=== PATIENT | male | born 1960 | race Caucasian/White ===

== ENCOUNTER 2018-08-26 09:37 | Inpatient (IN) | payer MEDICAID ==
[2018-08-26] MEDS ORDERED: ASPIRIN 81 MG TABLET, CHEWABLE PO ONE (09:40)
--- NOTE | 2018-08-26 10:00 | ER Document Report ---
ED General - General Stated Complaint: RAPID HEARTRATE Time Seen by Provider: 08/26/18 09:49 Primary Care Provider: ANNA IRWIN MD [NO LOCAL MD] - Follow up as needed Notes: Patient is a 57-year-old male with past medical history including some intermittent atrial fibrillation, COPD, coronary artery disease, obstructive sleep apnea, diabetes, high blood pressure, who states while he was sitting in a recliner this morning he felt his "heart get fast". He denies any and all chest pain or pressure. He does state some mild intermittent shortness of breath over the last 2 weeks. He denies any increased swelling of the legs. He denies any recent trips or travel. Patient is on Coumadin secondary to atrial fibrillation as well as previous blood clots in his legs with his most recent INR check around 2 weeks ago that was 2.5 as reported by the patient. Patient states his last episode of atrial fibrillation was around 5 years ago. He denies any runny nose, congestion, cough, vomiting, or diarrhea. TRAVEL OUTSIDE OF THE [place] IN LAST 30 DAYS: No - HPI Onset: Other - See above Onset/Duration: Gradual Quality of pain: No pain Severity: Mild Pain Level: Denies Associated symptoms: Other - See above Exacerbated by: Denies Relieved by: Denies Similar symptoms previously: No Recently seen / treated by doctor: No - Related Data Allergies/Adverse Reactions: allantoin [From Orajel] Allergy (Severe, Verified 08/08/15 12:46) Anaphylaxis benzalkonium chloride [From Orajel] Allergy (Severe, Verified 08/08/15 12:46) Anaphylaxis benzocaine [From Orajel] Allergy (Severe, Verified 08/08/15 12:46) Anaphylaxis carbamide peroxide [From Orajel] Allergy (Severe, Verified 08/08/15 12:46) Anaphylaxis zinc chloride [From Orajel] Allergy (Severe, Verified 08/08/15 12:46) Anaphylaxis budesonide [From Symbicort] Allergy (Verified 08/08/15 12:46) heart racing fluticasone propionate [From Advair Diskus] Allergy (Verified 08/08/15 12:46) Anaphylaxis formoterol fumarate [From Symbicort] Allergy (Verified 08/08/15 12:46) heart racing glyburide [Glyburide] Allergy (Verified 08/08/15 12:46) indomethacin [From Indocin] Allergy (Verified 08/08/15 12:46) indomethacin sodium [From Indocin] Allergy (Verified 08/08/15 12:46) lisinopril [Lisinopril] Allergy (Verified 08/08/15 12:46) salmeterol xinafoate [From Advair Diskus] Allergy (Verified 08/08/15 12:46) Anaphylaxis saxagliptin HCl [From Onglyza] Allergy (Verified 08/08/15 12:46) tiotropium bromide [From Spiriva with HandiHaler] Allergy (Verified 08/08/15 12:46) heart racing Past Medical History - General Cannot obtain history due to: Other - Social History Smoking Status: Unknown if Ever Smoked Cigarette use (# per day): No Chew tobacco use (# tins/day): No Smoking Education Provided: No Family History: Reviewed & Not Pertinent, Other - Father: lung CA - Past Medical History Cardiac Medical History: Reports: Hx Atrial Fibrillation, Hx Coronary Artery Disease, Hx DVT, Hx Hypercholesterolemia, Hx Hypertension, Hx Pulmonary Embolism Pulmonary Medical History: Reports: Hx Asthma, Hx Bronchitis, Hx COPD, Hx Pneumonia Endocrine Medical History: Reports: Hx Diabetes Mellitus Type 2 Renal/ Medical History: Reports: Hx Benign Prostatic Hyperplasia Musculoskeletal Medical History: Reports Hx Arthritis Past Surgical History: Reports: Hx Orthopedic Surgery - right leg x5 - Immunizations Hx Diphtheria, Pertussis, Tetanus Vaccination: - unknown Review of Systems - Review of Systems Constitutional: denies: Fever EENT: denies: Eye discharge, Nose discharge Cardiovascular: Palpitations, Heart racing. denies: Chest pain, Dizziness Respiratory: denies: Short of breath Gastrointestinal: denies: Vomiting Genitourinary: denies: Dysuria Musculoskeletal: denies: Leg swelling Skin: Other - no hives. denies: Rash Neurological/Psychological: Other - no slurred speech -: Yes All other systems reviewed and negative Physical Exam - Vital signs Vitals: Pulse Ox 95 08/26/18 09:40 Notes: Reviewed vital signs and nursing note as charted by RN. CONSTITUTIONAL: Alert and oriented and responds appropriately to questions. Well-appearing; well-nourished HEAD: Normocephalic; atraumatic EYES: PERRL; Conjunctivae clear, sclerae non-icteric ENT: Normal nose; no rhinorrhea; moist mucous membranes; pharynx without lesions noted NECK: Supple without meningismus; non-tender; no cervical lymphadenopathy, no masses CARD: Tachycardic and irregular; no murmurs; symmetric distal pulses RESP: Normal chest excursion without splinting or tachypnea; breath sounds clear and equal bilaterally; scant bilateral wheezing without rhonchi appreciated ABD/GI: Normal bowel sounds; non-distended; soft, non-tender; no palpable organomegaly or masses BACK: The back appears normal and is non-tender to palpation EXT: Normal ROM in all joints; non-tender to palpation; nontender 1+ pitting edema to bilateral lower extremities SKIN: No acute lesions noted NEURO: CN 2-12 intact; 5/5 bilateral upper and lower extremity strength with se nsation intact to light touch PSYCH: The patient's mood and manner are appropriate. Grooming and personal hygiene are appropriate. Course - Re-evaluation Re-evalutation: 08/26/18 09:53 Given the above history and physical examination we will place the patient on the monitor, obtain an EKG, PT/INR, basic labs and an x-ray of the chest. Patient has denied any and all chest pain or pressure. Patient is already taking Coumadin with the last INR check as recorded above. I do believe pulmonary embolism to be unlikely at this moment. Patient is currently on a Cardizem drip at 5 and we will increase this to 10. EMS has provided a Cardizem bolus of 25 before starting the patient on a drip. 08/26/18 10:00 EKG shows a heart rate 119, atrial fibrillation with rapid ventricular response, left axis deviation, no ST elevation or depression 08/26/18 10:54 X-ray of the chest as recorded. Laboratory work and troponin with the INR of 2 as recorded, I do not believe any further imaging or laboratory work is necessary at this moment. Patient's heart rate has improved. Cardizem drip of 10. Blood pressure was stable. Patient will be admitted to the hospitalist service with cardiology consultation. - Vital Signs Vital signs: Temp Pulse Resp BP Pulse Ox 97.8 F 118 H 21 H 190/95 H 95 08/26/18 09:42 08/26/18 09:42 08/26/18 09:42 08/26/18 09:42 08/26/18 09:40 - Laboratory Result Diagrams: 08/26/18 09:00 08/26/18 09:00 Laboratory results interpreted by me: 08/26/18 08/26/18 08/26/18 09:00 09:00 09:00 RDW 14.4 H PT 23.9 H Glucose 201 H Creatine Kinase 46 L Critical Care Note - Critical Care Note Total time excluding time spent on procedures (mins): 35 Discharge - Discharge Clinical Impression: Atrial fibrillation with rapid ventricular response Condition: Fair Disposition: ADMITTED INPATIENT Admitting Provider: Hospitalist Unit Admitted: IMCU Referrals: ANNA IRWIN MD [NO LOCAL MD] - Follow up as needed
[2018-08-26 10:13] LABS: ABSOLUTE BASOPHILS # (AUTO) 0.1 10^3/uL (0.0-0.2); ABSOLUTE EOSINOPHILS # (AUTO) 0.3 10^3/uL (0.0-0.6); ABSOLUTE LYMPHOCYTES (AUTO) 2.1 10^3/uL (0.5-4.7); ABSOLUTE MONOCYTES (AUTO) 0.9 10^3/uL (0.1-1.4); BASOPHILS % (AUTO) 0.8 % (0-2); EOSINOPHILS % (AUTO) 3.4 % (0-6); HEMATOCRIT 44.7 % (37.9-51.0); HEMOGLOBIN 15.3 g/dL (13.5-17.0); LYMPHOCYTES % (AUTO) 24.8 % (13-45); MEAN CORPUSCULAR HEMOGLOBIN 28.9 pg (27.0-33.4); MEAN CORPUSCULAR HGB CONC 34.3 g/dL (32.0-36.0); MEAN CORPUSCULAR VOLUME 84 fl (80-97); MONOCYTES % (AUTO) 11.2 % (3-13); PLATELET COUNT 214 10^3/uL (150-450); RED CELL DISTRIBUTION WIDTH 14.4 % (11.5-14.0); SEGMENTED NEUTROPHILS % (AUTO) 59.8 % (42-78); TOTAL CELLS COUNTED % (AUTO) 100 %; WHITE BLOOD COUNT 8.4 10^3/uL (4.0-10.5)
[2018-08-26 10:17] LABS: INTERNATIONAL RATION (INR) 2.02; PROTHROMBIN TIME 23.9 SEC (11.4-15.4)
[2018-08-26 10:26] LABS: ALANINE AMINOTRANSFERASE 35 U/L (21-72); ALBUMIN 4.7 g/dL (3.5-5.0); ALKALINE PHOSPHATASE 90 U/L (38-126); ANION GAP 10 (5-19); ASPARTATE AMINO TRANSFERASE 27 U/L (17-59); BILIRUBIN,DIRECT 0.3 mg/dL (0.0-0.4); BLOOD UREA NITROGEN 17 mg/dL (7-20); CALCIUM 9.5 mg/dL (8.4-10.2); CARBON DIOXIDE 26 mmol/L (22-30); CHLORIDE 105 mmol/L (98-107); CREATINE KINASE 46 U/L (55-170); GLUCOSE 201 mg/dL (75-110); POTASSIUM 4.5 mmol/L (3.6-5.0); SODIUM 140.7 mmol/L (137-145); TOTAL PROTEIN 7.3 g/dL (6.3-8.2)
[2018-08-26 10:38] LABS: CREATINE KINASE MB 0.56 ng/mL (<4.55)
[2018-08-26 10:42] LABS: TROPONIN I < 0.012 ng/mL
--- NOTE | 2018-08-26 10:50 | RADIOLOGY REPORT (SQ) ---
EXAM DESCRIPTION: CHEST SINGLE VIEW COMPLETED DATE/TIME: 08/26/2018 10:24 am REASON FOR STUDY: bed 8 palpitations COMPARISON: CT chest 08/08/2015 Chest films 08/08/2015, 06/27/2015, 09/04/2011 EXAM PARAMETERS: NUMBER OF VIEWS: One view. TECHNIQUE: Single frontal radiographic view of the chest acquired. RADIATION DOSE: NA LIMITATIONS: None. FINDINGS: LUNGS AND PLEURA: No opacities, masses or pneumothorax. No pleural effusion. MEDIASTINUM AND HILAR STRUCTURES: No masses. Contour normal. HEART AND VASCULAR STRUCTURES: Heart normal in size. Normal vasculature. BONES: No acute findings. HARDWARE: None in the chest. OTHER: No other significant finding. IMPRESSION: NO ACUTE RADIOGRAPHIC FINDING IN THE CHEST. TECHNICAL DOCUMENTATION: JOB ID: [id number] [employer]- All Rights Reserved Reading location - IP/workstation name: [email or web address]
[2018-08-26] MEDS ORDERED: ONDANSETRON HCL INJ/PF 4 MG/2 ML SDV IV PRN (11:27)
[2018-08-26] MEDS ORDERED: ZOLPIDEM TARTRATE 5 MG TABLET PO PRN (11:27)
[2018-08-26] MEDS ORDERED: HYDROCODONE/ACETAMINOPHEN 10-325 MG TABLET PO PRN (11:34)
[2018-08-26] MEDS ORDERED: INSULIN REG, HUMAN 100 UNIT/ML 3 ML VIAL (PYX) SUBCUT PRN (11:35)
[2018-08-26] MEDS ORDERED: DEXTROSE 40% GEL 15 GM TUBE PO PRN ×2 (11:35)
[2018-08-26] MEDS ORDERED: GLUCAGON,HUMAN RECOMB 1 MG INJ IM PRN (11:35)
[2018-08-26] MEDS ORDERED: DEXTROSE 50%-WATER 25 GM/50 ML DISP.SYRIN IV PRN ×2 (11:35)
[2018-08-26] MEDS ORDERED: DILTIAZEM HCL/D5W 125 MG/125 ML RTUINJ IV PRN ×2 (11:36→12:58)
[2018-08-26] MEDS ORDERED: (PENDING PHARMACY ID) (Warfarin Sodium 10 MG) PO SCH (11:45)
--- NOTE | 2018-08-26 12:03 | PDOC H&P ---
History of Present Illness Admission Date/PCP: 08/26/18 11:16 Patient complains of: Palpitations and shortness of breath History of Present Illness: JEET WORTHINGTON is a 57 year old male with history of morbid obesity, pulmonary embolism on Coumadin, atrial fibrillation, diabetes, hypertension, hyperlipidemia, obstructive sleep apnea, COPD secondary to smoking, on CPAP at night for obstructive sleep apnea, history of coronary artery disease came to the emergency room with complaints of sudden onset of palpitations and shortness of breath around 8:30 AM this morning. According to the patient he just finished his breakfast and sat in the recliner about to take his medications all of a sudden felt shortness of breath in association with palpitations like her heart is racing away., The symptoms are associated with lightheadedness and dizziness. He decided to came to the emergency room for further evaluation. Emergency room workup was done patient was found to be in A. fib with RVR started on Cardizem drip and medical consult was called for admission and cardiology consult. Went to talk to the patient in the emergency room in room 8 patient was morbidly obese male comfortable in the bed not anxious on Cardizem drip heart rate is in the 90s but still in A. fib, he is able to give a good information about her his past medical history and why he came to the emergency room today. Planning to put him in [facility] as an inpatient. Discussed the case with Dr. Falk is going to see the patient today. Past Medical History Cardiac Medical History: Reports: Atrial Fibrillation, Coronary Artery Disease, DVT, Hyperlipidema, Hypertension, Pulmonary Embolism Pulmonary Medical History: Reports: Asthma, Bronchitis, Chronic Obstructive Pulmonary Disease (COPD), Pneumonia Endocrine Medical History: Reports: Diabetes Mellitus Type 2 Musculoskeltal Medical History: Reports: Arthritis Past Surgical History Past Surgical History: Reports: Orthopedic Surgery - right leg x5, Other - Patient has surgery on both shoulders also multiple surgeries on the rtleg Social History Smoking Status: Former Smoker Frequency of Alcohol Use: None Hx Recreational Drug Use: No Drugs: None Hx Prescription Drug Abuse: No - Advance Directive Resuscitation Status: Full Code Family History Family History: Reviewed & Not Pertinent, Other - Father: lung CA Parental Family History Reviewed: Yes - Father has lung cancer and bone cancer Children Family History Reviewed: Yes Sibling(s) Family History Reviewed.: Yes Medication/Allergy Home Medications: Warfarin Sodium 10 mg PO ASDIR 02/04/12 Aspirin [Betty Chewable Aspirin] 81 mg PO DAILY 02/26/15 Atorvastatin Calcium [Lipitor 20 mg Tablet] 20 mg PO QHS 02/26/15 Cetirizine HCl [Zyrtec] 10 mg PO DAILY 02/26/15 Dextrose [Glucose] 1 each PO PRN PRN 02/26/15 Hydrocodone/Acetaminophen [[place] 10-325 Tablet] 1 each PO TIDP PRN 02/26/15 Ipratropium/Albuterol Sulfate [Combivent Respimat 20-100 Mcg] 4 gm IH Q6H 02/26/15 Metformin HCl [Glumetza ER 500 mg Tablet] 500 mg PO DAILY 02/26/15 Montelukast Sodium [Singulair 10 mg Tablet] 10 mg PO QHS 02/26/15 Neomy Sulf/Polymyx B Sulf/Hc [Cortisporin Otic Susp 10 ml] 1 drop OT QID 02/26/15 Tamsulosin HCl [Flomax 0.4 mg Cap.sr] 0.4 mg PO DAILY 02/26/15 Warfarin Sodium [Coumadin 5 mg Tablet] 5 mg PO ASDIR 02/26/15 Amlodipine Besylate [Norvasc 5 mg Tablet] 10 mg PO DAILY #30 tablet 06/28/15 Ondansetron [Zofran Odt 4 mg Tablet] 1 tab PO Q6H PRN #10 tab.rapdis 08/08/15 Allergies/Adverse Reactions: allantoin [From Orajel] Allergy (Severe, Verified 08/08/15 12:46) Anaphylaxis benzalkonium chloride [From Orajel] Allergy (Severe, Verified 08/08/15 12:46) Anaphylaxis benzocaine [From Orajel] Allergy (Severe, Verified 08/08/15 12:46) Anaphylaxis carbamide peroxide [From Orajel] Allergy (Severe, Verified 08/08/15 12:46) Anaphylaxis zinc chloride [From Orajel] Allergy (Severe, Verified 08/08/15 12:46) Anaphylaxis budesonide [From Symbicort] Allergy (Verified 08/08/15 12:46) heart racing fluticasone propionate [From Advair Diskus] Allergy (Verified 08/08/15 12:46) Anaphylaxis formoterol fumarate [From Symbicort] Allergy (Verified 08/08/15 12:46) heart racing glyburide [Glyburide] Allergy (Verified 08/08/15 12:46) indomethacin [From Indocin] Allergy (Verified 08/08/15 12:46) indomethacin sodium [From Indocin] Allergy (Verified 08/08/15 12:46) lisinopril [Lisinopril] Allergy (Verified 08/08/15 12:46) salmeterol xinafoate [From Advair Diskus] Allergy (Verified 08/08/15 12:46) Anaphylaxis saxagliptin HCl [From Onglyza] Allergy (Verified 08/08/15 12:46) tiotropium bromide [From Spiriva with HandiHaler] Allergy (Verified 08/08/15 12:46) heart racing Review of Systems Constitutional: PRESENT: weakness. ABSENT: fever(s), headache(s) Eyes: ABSENT: visual disturbances Ears: ABSENT: hearing changes Nose, Mouth, and Throat: ABSENT: sore throat Cardiovascular: PRESENT: palpitations. ABSENT: chest pain, dyspnea on exertion Respiratory: ABSENT: cough, dyspnea, hemoptysis Gastrointestinal: ABSENT: diarrhea, nausea, vomiting Neurological: PRESENT: dizziness, other - Complaining of tingling and numbness in the arms. Psychiatric: PRESENT: anxiety Physical Exam Vital Signs: Temp Pulse Resp BP Pulse Ox 97.8 F 118 H 21 H 190/95 H 95 08/26/18 09:42 08/26/18 09:42 08/26/18 09:42 08/26/18 09:42 08/26/18 09:40 Intake & Output 08/25/18 08/26/18 08/27/18 06:59 06:59 06:59 Weight 155.5 kg General appearance: PRESENT: other - Morbidly obese male with a BMI of more than 45. Head exam: PRESENT: atraumatic Eye exam: PRESENT: PERRLA Mouth exam: PRESENT: moist Neck exam: ABSENT: carotid bruit, JVD, lymphadenopathy, thyromegaly Respiratory exam: PRESENT: decreased breath sounds Cardiovascular exam: PRESENT: irregular rhythm, tachycardia GI/Abdominal exam: PRESENT: other - Morbidly obese abdomen bowel sounds are present. Extremities exam: PRESENT: +1 edema Neurological exam: PRESENT: alert, awake, oriented to person, oriented to place, oriented to time, oriented to situation, CN II-XII grossly intact. ABSENT: motor sensory deficit Psychiatric exam: PRESENT: appropriate affect, normal mood. ABSENT: homicidal ideation, suicidal ideation Results Laboratory Results: 08/26/18 09:00 08/26/18 09:00 08/26/18 08/26/18 09:00 09:00 WBC 8.4 RBC 5.30 Hgb 15.3 Hct 44.7 MCV 84 MCH 28.9 MCHC 34.3 RDW 14.4 H Plt Count 214 Seg Neutrophils % 59.8 Lymphocytes % 24.8 Monocytes % 11.2 Eosinophils % 3.4 Basophils % 0.8 Absolute Neutrophils 5.0 Absolute Lymphocytes 2.1 Absolute Monocytes 0.9 Absolute Eosinophils 0.3 Absolute Basophils 0.1 Sodium 140.7 Potassium 4.5 Chloride 105 Carbon Dioxide 26 Anion Gap 10 BUN 17 Creatinine 0.82 Est GFR ( Amer) > 60 Est GFR (Non-Af Amer) > 60 Glucose 201 H Calcium 9.5 Total Bilirubin 1.0 AST 27 ALT 35 Alkaline Phosphatase 90 Total Protein 7.3 Albumin 4.7 08/26/18 08/26/18 09:00 09:00 Creatine Kinase 46 L CK-MB (CK-2) 0.56 Troponin I < 0.012 Impressions: Chest X-Ray 08/26/18 09:40 IMPRESSION: NO ACUTE RADIOGRAPHIC FINDING IN THE CHEST. Assessment & Plan - Diagnosis (1) Atrial fibrillation with rapid ventricular response Is this a current diagnosis for this admission?: Yes Plan: 08/26/2018 patient came in with atrial fibrillation rapid ventricular rate. In association with the dizziness lightheadedness palpitations and shortness of breath. Patient is going to be placed in IMCU. Cardiology consult was requested. To continue Cardizem drip. Cardiac enzymes x3 requested. Echocardiogram was requested. Follow-up EKGs will be done. She is on Coumadin at home INR is 2.0 plan is to continue Coumadin during the hospital stay. To check TSH tomorrow. Fall precautions are requested. It is going to be admitted as inpatient. (2) Pulmonary embolism Is this a current diagnosis for this admission?: Yes Plan: 08/26/2018-patient has history of pulmonary embolism on Coumadin. His INR is 2.0. Planning to restart the Coumadin 10 mg p.o. nightly. To check the INR and daily basis. Plan to check the CTA of the chest today to rule out any PE. (3) HTN (hypertension) Qualifiers: Hypertension type: essential hypertension Qualified Code(s): I10 - Essential (primary) hypertension Is this a current diagnosis for this admission?: Yes Plan: 08/26/2018 patient has history of hypertension blood pressure is 190/95 in the emergency room. He is on amlodipine 10 mg p.o. daily. Plan to restart amlodipine during the hospital stay. Plan is to closely monitor the blood pressures on regular basis. (4) Diabetes 1.5, managed as type 2 Is this a current diagnosis for this admission?: Yes Plan: 08/26/2018-patient has history of diabetes mellitus type 2-planning to check the hemoglobin A1c tomorrow. Started on insulin sliding scale. Patient was on metformin at home which is going to be on hold. Dietary consult was requested. Diet exercise weight loss and complete the medications were requested. (5) Morbid obesity with BMI of 45.0-49.9, adult Is this a current diagnosis for this admission?: Yes Plan: 08/26/2018-patient has morbid obesity BMI is more than 45. Diet exercise weight loss lifestyle modifications discussed with the patient. Dietary consult was also requested. (6) COPD (chronic obstructive pulmonary disease) Is this a current diagnosis for this admission?: Yes Plan: 08/26/2018 patient is given the history of COPD is set is to smoke heavily before he quit smoking a few years ago. He is not on home oxygen. On examination chest bilateral entry was decreased but there is no wheezing no crackles. (7) Obstructive sleep apnea Is this a current diagnosis for this admission?: Yes Plan: 08/25/2018 patient is given the history of obstructive sleep apnea uses CPAP at night at home. Plan is to restart on CPAP during the hospital stay. - Time Time Spent: 50 to 70 Minutes Critical Time spent with patient: 15-24 minutes Medications reviewed and adjusted accordingly: Yes Anticipated discharge: Home
--- NOTE | 2018-08-26 13:10 | PDOC CONSULTATION ---
Consultation Consult Date: 08/26/18 Consult reason:: Atrial fibrillation with RVR History of Present Illness Admission Date/PCP: 08/26/18 11:16 Patient complains of: Palpitations and shortness of breath History of Present Illness: JEET WORTHINGTON is a 57 year old male with past medical history of morbid obesity, obstructive sleep apnea, COPD, history of pulmonary embolism, history of paroxysmal atrial fibrillation on Coumadin therapy, hypertension comes with complaints of palpitations with worsening shortness of breath and easy fatigability for the last few days. He denies any duy chest pain. Patient claims that he had pulmonary embolism a few years ago and at the same time he was diagnosed with atrial fibrillation and since then he has been on anticoagulation. He has not been on any rate limiting medications and claims he has not had an issue with fast heart rates in the past. He also admits to being on Xarelto at some point but had a reaction to the medicine and so was started on Coumadin. He has also noted puffiness of his legs lately. He denies any recent falls or any bleeding per rectum or black stools while on Coumadin therapy. He is single and lives by himself. He is used to smoke a pack of cigarettes for almost 30 years but quit 7 years ago. He denies alcohol abuse or any recreational drug use. Past Medical History Cardiac Medical History: Reports: Atrial Fibrillation, DVT, Hyperlipidema, Hypertension, Pulmonary Embolism Pulmonary Medical History: Reports: Asthma, Bronchitis, Chronic Obstructive Pulmonary Disease (COPD), Pneumonia Endocrine Medical History: Reports: Diabetes Mellitus Type 2, Obesity Musculoskeltal Medical History: Reports: Arthritis Past Surgical History Past Surgical History: Reports: Orthopedic Surgery - right leg x5, Other - Patient has surgery on both shoulders also multiple surgeries on the rtleg Social History Smoking Status: Former Smoker Frequency of Alcohol Use: None Hx Recreational Drug Use: No Drugs: None Hx Prescription Drug Abuse: No - Advance Directive Resuscitation Status: Full Code Family History Family History: Reviewed & Not Pertinent, Other - Father: lung CA Parental Family History Reviewed: Yes Children Family History Reviewed: Unknown Sibling(s) Family History Reviewed.: Unknown Medication/Allergy Home Medications: Warfarin Sodium 10 mg PO ASDIR 09/04/11 Aspirin [Betty Chewable Aspirin] 81 mg PO DAILY 02/26/15 Atorvastatin Calcium [Lipitor 20 mg Tablet] 20 mg PO QHS 02/26/15 Cetirizine HCl [Zyrtec] 10 mg PO DAILY 02/26/15 Dextrose [Glucose] 1 each PO PRN PRN 02/26/15 Hydrocodone/Acetaminophen [[place] 10-325 Tablet] 1 each PO TIDP PRN 02/26/15 Ipratropium/Albuterol Sulfate [Combivent Respimat 20-100 Mcg] 4 gm IH Q6H 02/26/15 Metformin HCl [Glumetza ER 500 mg Tablet] 500 mg PO DAILY 02/26/15 Montelukast Sodium [Singulair 10 mg Tablet] 10 mg PO QHS 02/26/15 Neomy Sulf/Polymyx B Sulf/Hc [Cortisporin Otic Susp 10 ml] 1 drop OT QID 02/26/15 Tamsulosin HCl [Flomax 0.4 mg Cap.sr] 0.4 mg PO DAILY 02/26/15 Warfarin Sodium [Coumadin 5 mg Tablet] 5 mg PO ASDIR 02/26/15 Amlodipine Besylate [Norvasc 5 mg Tablet] 10 mg PO DAILY #30 tablet 06/28/15 Ondansetron [Zofran Odt 4 mg Tablet] 1 tab PO Q6H PRN #10 tab.rapdis 08/08/15 Allergies/Adverse Reactions: allantoin [From Orajel] Allergy (Severe, Verified 08/08/15 12:46) Anaphylaxis benzalkonium chloride [From Orajel] Allergy (Severe, Verified 08/08/15 12:46) Anaphylaxis benzocaine [From Orajel] Allergy (Severe, Verified 08/08/15 12:46) Anaphylaxis carbamide peroxide [From Orajel] Allergy (Severe, Verified 08/08/15 12:46) Anaphylaxis zinc chloride [From Orajel] Allergy (Severe, Verified 08/08/15 12:46) Anaphylaxis budesonide [From Symbicort] Allergy (Verified 08/08/15 12:46) heart racing fluticasone propionate [From Advair Diskus] Allergy (Verified 08/08/15 12:46) Anaphylaxis formoterol fumarate [From Symbicort] Allergy (Verified 08/08/15 12:46) heart racing glyburide [Glyburide] Allergy (Verified 08/08/15 12:46) indomethacin [From Indocin] Allergy (Verified 08/08/15 12:46) indomethacin sodium [From Indocin] Allergy (Verified 08/08/15 12:46) lisinopril [Lisinopril] Allergy (Verified 08/08/15 12:46) salmeterol xinafoate [From Advair Diskus] Allergy (Verified 08/08/15 12:46) Anaphylaxis saxagliptin HCl [From Onglyza] Allergy (Verified 08/08/15 12:46) tiotropium bromide [From Spiriva with HandiHaler] Allergy (Verified 08/08/15 12:46) heart racing Review of Systems Constitutional: PRESENT: fatigue Cardiovascular: PRESENT: dyspnea on exertion, edema, orthropnea, palpitations Physical Exam Vital Signs: Temp Pulse Resp BP Pulse Ox 97.8 F 118 H 16 136/92 H 96 08/26/18 09:42 08/26/18 09:42 08/26/18 11:01 08/26/18 11:00 08/26/18 11:01 Intake & Output 08/25/18 08/26/18 08/27/18 06:59 06:59 06:59 Weight 155.5 kg General appearance: PRESENT: no acute distress, other Head exam: PRESENT: atraumatic, normocephalic Respiratory exam: PRESENT: decreased breath sounds Cardiovascular exam: PRESENT: irregular rhythm, tachycardia Results Laboratory Results: 08/26/18 09:00 08/26/18 09:00 08/26/18 08/26/18 09:00 09:00 WBC 8.4 RBC 5.30 Hgb 15.3 Hct 44.7 MCV 84 MCH 28.9 MCHC 34.3 RDW 14.4 H Plt Count 214 Seg Neutrophils % 59.8 Lymphocytes % 24.8 Monocytes % 11.2 Eosinophils % 3.4 Basophils % 0.8 Absolute Neutrophils 5.0 Absolute Lymphocytes 2.1 Absolute Monocytes 0.9 Absolute Eosinophils 0.3 Absolute Basophils 0.1 Sodium 140.7 Potassium 4.5 Chloride 105 Carbon Dioxide 26 Anion Gap 10 BUN 17 Creatinine 0.82 Est GFR ( Amer) > 60 Est GFR (Non-Af Amer) > 60 Glucose 201 H Calcium 9.5 Total Bilirubin 1.0 AST 27 ALT 35 Alkaline Phosphatase 90 Total Protein 7.3 Albumin 4.7 08/26/18 08/26/18 09:00 09:00 Creatine Kinase 46 L CK-MB (CK-2) 0.56 Troponin I < 0.012 Impressions: Chest X-Ray 08/26/18 09:40 IMPRESSION: NO ACUTE RADIOGRAPHIC FINDING IN THE CHEST. Assessment & Plan - Diagnosis (1) Atrial fibrillation with rapid ventricular response Is this a current diagnosis for this admission?: Yes (2) COPD (chronic obstructive pulmonary disease) Qualifiers: COPD type: unspecified COPD Qualified Code(s): J44.9 - Chronic obstructive pulmonary disease, unspecified Is this a current diagnosis for this admission?: Yes (3) Morbid obesity with BMI of 45.0-49.9, adult Is this a current diagnosis for this admission?: Yes (4) Diabetes 1.5, managed as type 2 Is this a current diagnosis for this admission?: Yes (5) HTN (hypertension) Qualifiers: Hypertension type: essential hypertension Qualified Code(s): I10 - Essential (primary) hypertension Is this a current diagnosis for this admission?: Yes (6) Obstructive sleep apnea Is this a current diagnosis for this admission?: Yes - Notes Notes: Reviewed EKG, telemetry and lab results. Morbidly obese patient with known history of paroxysmal atrial fibrillation comes in with atrial fibrillation with rapid ventricular rate with NYHA class III symptoms. Will recommend to start patient on oral beta-caro therapy and gradually taper off Cardizem drip. Agree with transthoracic echocardiogram to evaluate systolic and diastolic fun ction. Continue anticoagulation with Coumadin to maintain an INR between 2 and 3. Patient will benefit from low-dose diuretic therapy for likely diastolic dysfunction. No duy anginal symptoms at this time to warrant any ischemia workup. In any case patient gives history of a cardiac cath couple of years ago which he claims was negative for any obstructive coronary artery disease. Would continue on CPAP therapy during hospitalization for his obstructive sleep apnea. 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 If rate control alone does not relieve his symptoms then rhythm control strategy has to be considered. Discussed risk/benefits of anticoagulation with patient. - Time Time Spent: 50 to 70 Minutes
[2018-08-26] MEDS ORDERED: NEOMY SULF/POLYMYX B SULF/HC OTIC SUSP 10 ML OT SCH (14:00)
--- NOTE | 2018-08-26 17:50 | RADIOLOGY REPORT (SQ) ---
EXAM DESCRIPTION: CTA CHEST COMPLETED DATE/TIME: 08/26/2018 5:29 pm REASON FOR STUDY: h/o PE COMPARISON: Chest radiograph TECHNIQUE: CT scan of the chest performed using helical scanning technique with dynamic intravenous contrast injection. Images reviewed with lung, soft tissue and bone windows. Reconstructed coronal and sagittal MPR images reviewed. Additional 3 dimensional post-processing performed to develop Maximal Intensity Projection images (MO P). All images stored on PACS. All CT scanners at this facility use dose modulation, iterative reconstruction, and/or weight based d osing when appropriate to reduce radiation dose to as low as reasonably achievable (ALARA). [facility]: Dose Right [facility]: CareDose [facility]: Dose Right [facility]: Teradose 4D [facility]: StockLayouts CONTRAST TYPE AND DOSE: contrast/concentration: Isovue 350.00 mg/ml; Total Contrast Delivered: 90.0 ml; Total Saline Delivered: 80.0 ml Contrast bolus optimized for the pulmonary arteries. Not diagnostic for the aorta. RENAL FUNCTION: GFR > 60. RADIATION DOSE: CT Rad equipment meets quality standard of care and radiation dose reduction techniq ues were employed. CTDIvol: 41.4 - 49.6 mGy. DLP: 1652 mGy-cm. . LIMITATIONS: None FINDINGS: LUNGS AND PLEURA: No masses, infiltrates, or pneumothorax. No pleural effusions or pleura l calcifications. AORTA AND GREAT VESSELS: No aneurysm. Contrast bolus not optimized for the aorta. HEART: No pericardial effusion. No significant coronary artery calcifications. PULMONARY ARTERIES: No emboli visualized in the main pulmonary arteries or the segmental branches. HILAR AND MEDIASTINAL STRUCTURES: No identified masses or abnormal nodes. HARDWARE: None in the chest. UPPER ABDOMEN: No significant findings. Limited exam. THYROID AND OTHER SOFT TISSUES: No masses. No adenopathy. BONES: No acute or significant finding. 3D MIPS: Confirm above findings. OTHER: No other significant finding. IMPRESSION: NORMAL CTA OF THE CHEST. NO PULMONARY EMBOLI. COMMENT: Quality ID # [id number]: Final reports with documentation of one or more dose reduction techniques (e.g., Automated exposure control, adjustment of the mA and/or kV according to patient size, use of iterative reconstruction technique) TECHNICAL DOCUMENTATION: JOB ID: [id number] [employer]- All Rights Reserved Reading location - IP/workstation name: [email or web address]
[2018-08-26] MEDS: FUROSEMIDE 20 MG TABLET PO SCH (18:37)
[2018-08-26] MEDS: MAGNESIUM OXIDE 400 MG TABLET PO SCH (18:38)
[2018-08-26] MEDS: DOCUSATE SODIUM 100 MG/10 ML UDC PO SCH (18:38)
--- NOTE | 2018-08-26 21:39 | EKG REPORT ---
SEVERITY:- ABNORMAL ECG - ATRIAL FIBRILLATION, V-RATE 78-150 INCOMPLETE RBBB AND LAFB BORDERLINE PROLONGED QT INTERVAL : Confirmed by: Gemma Akins MD 26-Aug-2018 21:39:12
--- NOTE | 2018-08-26 21:39 | EKG REPORT ---
SEVERITY:- ABNORMAL ECG - SINUS RHYTHM INCOMPLETE RBBB AND LAFB : Confirmed by: Gemma Akins MD 26-Aug-2018 21:39:08
[2018-08-26] MEDS ORDERED: MONTELUKAST SODIUM 10 MG TABLET PO SCH (22:00)
[2018-08-26] MEDS ORDERED: ATORVASTATIN CALCIUM 20 MG TABLET PO SCH (22:00)
[2018-08-26] MEDS: METOPROLOL TARTRATE 25 MG TABLET PO SCH (22:46)
[2018-08-26] MEDS: FAMOTIDINE 20 MG TABLET PO SCH (22:46)
[2018-08-27 03:57] LABS: ABSOLUTE BASOPHILS # (AUTO) 0.1 10^3/uL (0.0-0.2); ABSOLUTE EOSINOPHILS # (AUTO) 0.3 10^3/uL (0.0-0.6); ABSOLUTE LYMPHOCYTES (AUTO) 1.8 10^3/uL (0.5-4.7); ABSOLUTE NEUT (AUTO) 6.9 10^3/uL (1.7-8.2); HEMATOCRIT 43.5 % (37.9-51.0); HEMOGLOBIN 14.7 g/dL (13.5-17.0); LYMPHOCYTES % (AUTO) 18.3 % (13-45); MEAN CORPUSCULAR HEMOGLOBIN 28.3 pg (27.0-33.4); MEAN CORPUSCULAR HGB CONC 33.8 g/dL (32.0-36.0); MEAN CORPUSCULAR VOLUME 84 fl (80-97); PLATELET COUNT 204 10^3/uL (150-450); RED BLOOD COUNT 5.19 10^6/uL (4.35-5.55); RED CELL DISTRIBUTION WIDTH 14.4 % (11.5-14.0); SEGMENTED NEUTROPHILS % (AUTO) 67.7 % (42-78); TOTAL CELLS COUNTED % (AUTO) 100 %; WHITE BLOOD COUNT 10.1 10^3/uL (4.0-10.5)
[2018-08-27 04:03] LABS: INTERNATIONAL RATION (INR) 1.64; PROTHROMBIN TIME 20.3 SEC (11.4-15.4)
[2018-08-27 04:32] LABS: ALANINE AMINOTRANSFERASE 35 U/L (21-72); ALKALINE PHOSPHATASE 78 U/L (38-126); ANION GAP 5 (5-19); ASPARTATE AMINO TRANSFERASE 23 U/L (17-59); BILIRUBIN,DIRECT 0.3 mg/dL (0.0-0.4); BILIRUBIN,TOTAL 1.3 mg/dL (0.2-1.3); BLOOD UREA NITROGEN 15 mg/dL (7-20); CARBON DIOXIDE 28 mmol/L (22-30); CHLORIDE 108 mmol/L (98-107); GLUCOSE 132 mg/dL (75-110); SODIUM 141.1 mmol/L (137-145); TOTAL PROTEIN 6.4 g/dL (6.3-8.2); TRIGLYCERIDES 118 mg/dL (<150)
[2018-08-27 04:43] LABS: DIRECT LDL 68 mg/dL (<100)
--- NOTE | 2018-08-27 07:52 | EKG REPORT ---
SEVERITY:- ABNORMAL ECG - SINUS RHYTHM INCOMPLETE RIGHT BUNDLE BRANCH BLOCK : Confirmed by: Gemma Akins MD 27-Aug-2018 07:52:17
[2018-08-27] MEDS ORDERED: AMLODIPINE BESYLATE 5 MG TABLET PO SCH (10:00)
[2018-08-27] MEDS ORDERED: WARFARIN SODIUM 5 MG TABLET PO SCH (10:00)
[2018-08-27] MEDS ORDERED: ASPIRIN 81 MG TABLET, CHEWABLE PO SCH (10:00)
[2018-08-27] MEDS ORDERED: TAMSULOSIN HCL 0.4 MG CAP.SR.24H PO SCH (10:00)
[2018-08-27] MEDS ORDERED: METFORMIN HCL 500 MG PO SCH (10:00)
[2018-08-27] MEDS ORDERED: AMLODIPINE BESYLATE 10 MG TABLET PO SCH (10:00)
[2018-08-27] MEDS: FAMOTIDINE 20 MG TABLET PO SCH (11:07)
[2018-08-27] MEDS: MAGNESIUM OXIDE 400 MG TABLET PO SCH (11:07)
[2018-08-27] MEDS: METOPROLOL TARTRATE 25 MG TABLET PO SCH (11:08)
[2018-08-27] MEDS: FUROSEMIDE 20 MG TABLET PO SCH (11:08)
[2018-08-27] MEDS: DOCUSATE SODIUM 100 MG/10 ML UDC PO SCH (11:09)
[2018-08-27] MEDS ORDERED: (PENDING PHARMACY ID) (Clobetasol Propionate/Emoll [Clobetasol Emollient 0.05% Crm] 1 APPL TP PRN (11:28)
[2018-08-27] MEDS ORDERED: OXYCODONE-ACETAMINOPHEN 5-325 MG TABLET PO PRN (11:28)
[2018-08-27] MEDS ORDERED: CLOBETASOL PROPIONATE 0.05% CREAM 15 GM TP PRN (11:43)
--- NOTE | 2018-08-27 11:43 | PDOC DISCHARGE SUMMARY ---
General - Admit/Disc Date/PCP Admission Date/Primary Care Provider: 08/26/18 11:16 Discharge Date: 08/27/18 - Discharge Diagnosis (1) Atrial fibrillation with rapid ventricular response Is this a current diagnosis for this admission?: Yes Summary: 08/26/2018 patient came in with atrial fibrillation rapid ventricular rate. In association with the dizziness lightheadedness palpitations and shortness of breath. Patient is going to be placed in IMCU. Cardiology consult was reques telma. To continue Cardizem drip. Cardiac enzymes x3 requested. Echocardiogram was requested. Follow-up EKGs will be done. She is on Coumadin at home INR is 2.0 plan is to continue Coumadin during the hospital stay. To check TSH tomorrow. Fall precautions are requested. It is going to be admitted as inpatient. 08/27/2018 this 57-year-old male with history of atrial fibrillation before and pulmonary embolism came to the emergency room with sudden onset of shortness of breath and palpitations found to be in atrial fib with RVR. Started on Cardizem drip. Cardiology consult was done. As per the toddler teacher's advice he was started on metoprolol 25 mg p.o. twice daily and patient was converted to sinus rhythm last night. Cardizem drip was discontinued. Patient is asymptomatic comfortably in the bed communicating very well. Heart rate at this moment is 60. Patient INR on admission is 2.03 today it was 1.64 somehow he missed his Coumadin dose last night. As per Dr. Falk, recommendation we going to give the pt 40 mg of Lovenox 1 dose today before the patient patient is discharged. Pt Was advised to restart on Coumadin from [facility]. (2) Pulmonary embolism Is this a current diagnosis for this admission?: Yes Summary: 08/26/2018-patient has history of pulmonary embolism on Coumadin. His INR is 2.0. Planning to restart the Coumadin 10 mg p.o. nightly. To check the INR and daily basis. Plan to check the CTA of the chest today to rule out any PE. 08/27/2018-patient has history of pulmonary embolism on Coumadin INR on admission is 2.0 missed his dose last night and INR this morning is 1.64 we continue Lovenox chart prior to discharge him to he was advised to restart on Coumadin from [facility]. pt Agreed and verbalized response. (3) HTN (hypertension) Is this a current diagnosis for this admission?: Yes Summary: 08/27/2018 patient blood pressure today is 134/74. Patient was advised to continue amlodipine 10 mg p.o. daily, continue losartan, I gave a prescription for metoprolol 25 mg p.o. twice daily and Lasix 20 mg p.o. daily. Echocardiogram indicates he might have diastolic heart failure. (4) Diabetes 1.5, managed as type 2 Is this a current diagnosis for this admission?: Yes Summary: 08/26/2018-patient has history of diabetes mellitus type 2-planning to check the hemoglobin A1c tomorrow. Started on insulin sliding scale. Patient was on metformin at home which is going to be on hold. Dietary consult was requested. Diet exercise weight loss and complete the medications were requested. 08/27/2018-patient has history of type 2 diabetes mellitus hemoglobin A1c 7.4. Patient is on a Januvia/metformin at home patient was advised to continue the home medication. (5) Morbid obesity with BMI of 45.0-49.9, adult Is this a current diagnosis for this admission?: Yes Summary: 08/26/2018-patient has morbid obesity BMI is more than 45. Diet exercise weight loss lifestyle modifications discussed with the patient. Dietary consult was also requested. 08/27/2018-patient is BMI is more than 45 diet, exercise, weight loss, lifestyle modifications are discussed with the patient patient understood and verbalized response. Dietary consult was also done. (6) COPD (chronic obstructive pulmonary disease) Is this a current diagnosis for this admission?: Yes Summary: 08/26/2018 patient is given the history of COPD is set is to smoke heavily before he quit smoking a few years ago. He is not on home oxygen. On examination chest bilateral entry was decreased but there is no wheezing no crackles. 08/27/2018-patient has history of COPD secondary to chronic smoking. He is not on home oxygen. His pulse ox is 100 on room air is 94%. Smoking counseling was provided. (7) Obstructive sleep apnea Is this a current diagnosis for this admission?: Yes Summary: 08/25/2018 patient is given the history of obstructive sleep apnea uses CPAP at night at home. Plan is to restart on CPAP during the hospital stay. 08/27/2018-patient has history of obstructive sleep apnea on CPAP at home we continued the management here in the hospital patient was advised to continue CPAP at home. - Additional Information Resuscitation Status: Full Code Discharge Diet: Diabetic Discharge Activity: Activity As Tolerated Prescriptions: Furosemide [Lasix 20 mg Tablet] 20 mg PO QAM #30 tablet Metoprolol Tartrate [Lopressor 25 mg Tablet] 25 mg PO Q12 #60 tablet Home Medications: Warfarin Sodium 10 mg PO SUTUTHSA@0800 09/04/11 Atorvastatin Calcium [Lipitor 20 mg Tablet] 20 mg PO QHS 02/26/15 Montelukast Sodium [Singulair 10 mg Tablet] 10 mg PO QHS 02/26/15 Warfarin Sodium [Coumadin 5 mg Tablet] 5 mg PO MOWEFR@0800 02/26/15 Amlodipine Besylate [Norvasc 5 mg Tablet] 10 mg PO DAILY #30 tablet 06/28/15 Aspirin [Ecotrin 81 mg EC Tablet] 81 mg PO DAILY 08/26/18 Clobetasol Propionate/Emoll [Clobetasol Emollient 0.05% Crm] 1 applic TP BIDP PRN 08/26/18 Levalbuterol HCl [Xopenex Neb 0.63 mg/3 ml Ampul] 0.63 mg NEB RTBIDP PRN 08/26/18 Losartan Potassium [Cozaar 100 mg Tablet] 100 mg PO DAILY 08/26/18 Oxycodone HCl/Acetaminophen [Percocet 5-325 mg Tablet] 1 tab PO Q6HP PRN MDD FILLED 08/17 FOR 5 DAY SUPPLY 08/26/18 Sitagliptin Phosphate [Januvia 50 mg Tablet] 100 mg PO DAILY 08/26/18 Furosemide [Lasix 20 mg Tablet] 20 mg PO QAM #30 tablet 08/27/18 Metoprolol Tartrate [Lopressor 25 mg Tablet] 25 mg PO Q12 #60 tablet 08/27/18 History of Present Illness History of Present Illness: JEET WORTHINGTON is a 57 year old male with history of morbid obesity, pulmonary embolism on Coumadin, atrial fibrillation, diabetes, hypertension, hyperlipidemia, obstructive sleep apnea, COPD secondary to smoking, on CPAP at night for obstructive sleep apnea, history of coronary artery disease came to the emergency room with complaints of sudden onset of palpitations and shortness of breath around 8:30 AM this morning. According to the patient he just finished his breakfast and sat in the recliner about to take his medications all of a sudden felt shortness of breath in association with palpitations like her heart is racing away., The symptoms are associated with lightheadedness and dizziness. He decided to came to the emergency room for further evaluation. Emergency room workup was done patient was found to be in A. fib with RVR started on Cardizem drip and medical consult was called for admission and cardiology consult. Went to talk to the patient in the emergency room in room 8 patient was morbidly obese male comfortable in the bed not anxious on Cardizem drip heart rate is in the 90s but still in A. fib, he is able to give a good information about her his past medical history and why he came to the emergency room today. Planning to put him in [facility] as an inpatient. Discussed the case with Dr. Falk is going to see the patient today. Physical Exam Vital Signs: Temp Pulse Resp BP Pulse Ox 97.6 F 59 L 16 134/73 H 94 08/27/18 08:02 08/27/18 08:02 08/27/18 08:02 08/27/18 08:02 08/27/18 09:00 Intake & Output 08/26/18 08/27/18 08/28/18 06:59 06:59 06:59 Intake Total 636 Balance 636 Weight 150.4 kg General appearance: PRESENT: other - Morbidly obese male not in distress. Head exam: PRESENT: atraumatic Eye exam: PRESENT: PERRLA Neck exam: ABSENT: carotid bruit, JVD, lymphadenopathy, thyromegaly Respiratory exam: PRESENT: decreased breath sounds Cardiovascular exam: PRESENT: RRR. ABSENT: diastolic murmur, rubs, systolic murmur GI/Abdominal exam: PRESENT: other - His abdomen soft nontender bowel sounds are present. Extremities exam: PRESENT: full ROM. ABSENT: calf tenderness, clubbing, pedal edema Neurological exam: PRESENT: alert, awake, oriented to person, oriented to place, oriented to time, oriented to situation, CN II-XII grossly intact. ABSENT: motor sensory deficit Psychiatric exam: PRESENT: appropriate affect, normal mood. ABSENT: homicidal ideation, suicidal ideation Results Laboratory Results: 08/27/18 03:45 08/27/18 03:45 08/27/18 08/27/18 08/27/18 03:45 03:45 03:45 WBC 10.1 RBC 5.19 Hgb 14.7 Hct 43.5 MCV 84 MCH 28.3 MCHC 33.8 RDW 14.4 H Plt Count 204 Seg Neutrophils % 67.7 Lymphocytes % 18.3 Monocytes % 10.0 Eosinophils % 3.0 Basophils % 1.0 Absolute Neutrophils 6.9 Absolute Lymphocytes 1.8 Absolute Monocytes 1.0 Absolute Eosinophils 0.3 Absolute Basophils 0.1 Sodium 141.1 Potassium 4.0 Chloride 108 H Carbon Dioxide 28 Anion Gap 5 BUN 15 Creatinine 0.85 Est GFR ( Amer) > 60 Est GFR (Non-Af Amer) > 60 Glucose 132 H Calcium 9.0 Magnesium 1.8 Total Bilirubin 1.3 AST 23 ALT 35 Alkaline Phosphatase 78 Total Protein 6.4 Albumin 4.0 Triglycerides 118 Cholesterol 114.10 LDL Cholesterol Direct 68 VLDL Cholesterol 24.0 HDL Cholesterol 37 L TSH 1.91 08/26/18 08/26/18 08/26/18 09:00 09:00 15:00 Creatine Kinase 46 L 43 L CK-MB (CK-2) 0.56 Troponin I < 0.012 NT-Pro-B Natriuret Pep 08/26/18 08/26/18 08/26/18 15:00 20:45 20:45 Creatine Kinase 43 L CK-MB (CK-2) Troponin I < 0.012 < 0.012 NT-Pro-B Natriuret Pep 08/27/18 08/27/18 08/27/18 03:45 03:45 03:45 Creatine Kinase 38 L CK-MB (CK-2) Troponin I < 0.012 NT-Pro-B Natriuret Pep 261 Impressions: Chest/Abdomen CTA 08/26/18 00:00 IMPRESSION: NORMAL CTA OF THE CHEST. NO PULMONARY EMBOLI. Chest X-Ray 08/26/18 09:40 IMPRESSION: NO ACUTE RADIOGRAPHIC FINDING IN THE CHEST. Qualifiers - * PATIENT BEING DISCHARGED WITH ANY OF THE FOLLOWING DIAGNOSIS: No VTE patient discharged on overlapping Therapy?: No
[2018-08-27] MEDS ORDERED: ASPIRIN 81 MG TABLET, ENT COATED PO SCH (12:00)
[2018-08-27] MEDS ORDERED: LOSARTAN POTASSIUM 50 MG TABLET PO SCH (12:00)
[2018-08-27] MEDS ORDERED: SITAGLIPTIN PHOSPHATE 50 MG TABLET PO SCH (12:00)
[2018-08-27] MEDS ORDERED: ENOXAPARIN SODIUM INJ 40 MG/0.4 ML DISP.SYRIN SUBCUT SCH (12:30)
[2018-08-27 13:03] VITALS: BP 165/75
[2018-08-28] MEDS ORDERED: (PENDING PHARMACY ID) (Warfarin Sodium 5 MG) PO SCH (08:00)
[2018-08-28] MEDS ORDERED: WARFARIN SODIUM 5 MG TABLET PO SCH (10:00)
== END 2018-08-27 13:19 | disposition home or self-care (01) | DRG 309 ==
LOC: ER 09:37 → EH 11:16 → 3S 17:35
PROVIDERS: ADMIT Family Medicine; ATTEND Family Medicine
DX: I48.0 Paroxysmal atrial fibrillation (principal); Z68.42 Body mass index [BMI] 45.0-49.9, adult; I10 Essential (primary) hypertension; J44.9 Chronic obstructive pulmonary disease, unspecified; I25.10 Atherosclerotic heart disease of native coronary artery without angina pectoris; E78.5 Hyperlipidemia, unspecified; E11.8 Type 2 diabetes mellitus with unspecified complications; N40.0 Benign prostatic hyperplasia without lower urinary tract symptoms; G47.33 Obstructive sleep apnea (adult) (pediatric); E66.01 Morbid (severe) obesity due to excess calories; Z86.718 Personal history of other venous thrombosis and embolism; Z86.711 Personal history of pulmonary embolism; Z79.01 Long term (current) use of anticoagulants; Z79.84 Long term (current) use of oral hypoglycemic drugs; Z79.02 Long term (current) use of antithrombotics/antiplatelets; Z79.82 Long term (current) use of aspirin; Z79.899 Other long term (current) drug therapy; Z87.891 Personal history of nicotine dependence
CPT/HCPCS: 36415; 71045; 71275; 80053; 80061; 82550; 82553; 82962; 83036; 83735; 83880; 84443; 84484; 85025; 85610; 93005; 93010; 94660; 99285; J1650; J3490